=== PATIENT | female | born 1980 | race African-American/Black ===

== ENCOUNTER 2021-04-28 20:46 | Emergency (ER) | payer OTHER ==
[~2021-04-28] VITALS: Ht 172.7 cm; Wt 97.5 kg
[~2021-04-28 20:46] MED LIST: BACTRIM DS TAB1 EACH PO; HYDROCHLOROTHIA25 M2 PO; IBUPROFEN 600600 M1 PO; IBUPROFEN 800800 M1 PO; IBUPROFEN 800800 MG PO; NOHOMEMEDICATIONS; NORCO 5-325 TA1 EACH PO; TRAMADOL 50 MG50 MG PO
[2021-04-28] MEDS ORDERED: BACTRIM DS TAB1 EAC1 PO (21:18)
[2021-04-28] MEDS ORDERED: NORCO5 PO (21:18)
[2021-04-28 23:10] VITALS: BP 136/74
== END 2021-04-28 21:30 | disposition home or self-care (01) ==
LOC: ER 20:46
DX: L02.412 Cutaneous abscess of left axilla (principal); N18.6 End stage renal disease; F17.210 Nicotine dependence, cigarettes, uncomplicated; Z98.51 Tubal ligation status; Z79.899 Other long term (current) drug therapy